=== PATIENT | male | born 1945 | race Caucasian/White ===

== ENCOUNTER 2016-04-02 07:55 | Day surgery (SDC) | payer MEDICARE, OTHER ==
[2016-04-02] MEDS ORDERED: EPINEPHRINE 1:10,000 PREFILL 0.1 MG/ML SOL SC ONE (08:55)
[2016-04-02 09:10] VITALS: TEMP 97.3
[2016-04-02 09:36] VITALS: BP 133/82; PULSE 75; RESP 20; O2SAT 98
[2016-04-02] MEDS ORDERED: EPINEPHRINE 1:10,000 PREFILL 0.1 MG/ML SOL ONE (14:09)
== END 2016-04-02 09:46 | disposition home or self-care (01) | DRG 392 ==
LOC: SURG 07:55
PROVIDERS: ATTEND Internal Medicine Gastroenterology
DX: R10.9 Unspecified abdominal pain (principal); K64.8 Other hemorrhoids; K91.61 Intraoperative hemorrhage and hematoma of a digestive system organ or structure complicating a digestive system procedure; R19.7 Diarrhea, unspecified; Z85.038 Personal history of other malignant neoplasm of large intestine; R93.3 Abnormal findings on diagnostic imaging of other parts of digestive tract; Z98.0 Intestinal bypass and anastomosis status
CPT/HCPCS: J2001; J2704